=== PATIENT | male | born 1935 | race Caucasian/White ===

== ENCOUNTER → 2016-09-25 | Outpatient (CLI) | payer MEDICARE, BC ==
[~2016-09-25] MED LIST: ALFUZOSIN HYDRO10 MG PO; ALKA-SELTZER AN1 CAP PO; ALLOPURINOL300 MG PO; AMILORIDE HCL5 MG PO; ASTELIN NASAL S34 ML NS; FLECAINIDE ACE100 MG PO; FLONASE0.05 MG/AC NS; LIDODERM PATCH TP; METAMUCIL1 PDR PO; MIRALAX17 GM/DOSE PO; MYCOSTATIN100000 U/M PO; PEPCID 20MG TAB20 MG PO; SENOKOT8.6 MG PO; SENORMIN50 MG PO; SIMVASTATIN40 MG PO; ST. JOSEPH81 M2 PO; VIT-GEN1 TAB PO; VITAMIN C500 MG PO; XYZAL PO
== END ==
LOC: LAB 06:05
DX: R63.0 Anorexia (principal); R41.0 Disorientation, unspecified

== ENCOUNTER → 2016-09-30 | Outpatient (CLI) | payer MEDICARE, BC | LOC: LAB 06:20 | DX: N39.0 Urinary tract infection, site not specified (principal); I10 Essential (primary) hypertension; M54.5 Low back pain ==

== ENCOUNTER → 2016-10-14 | Outpatient (CLI) | payer MEDICARE, BC | LOC: LAB 05:50 | DX: N40.1 Benign prostatic hyperplasia with lower urinary tract symptoms (principal); R53.83 Other fatigue ==

== ENCOUNTER → 2016-10-16 | Outpatient (CLI) | payer MEDICARE, BC | LOC: RAD 09:32 | DX: C49.A2 Gastrointestinal stromal tumor of stomach (principal) | CPT/HCPCS: Q9967 ==